=== PATIENT | male | born 1965 ===

== ENCOUNTER 2016-07-15 17:16 | Emergency (ER) | payer MEDICARE, MEDICAID ==
[2016-07-15] MEDS ORDERED: NS 0.9% 1000 ML* 1,000 ML IV ONE (18:51)
[2016-07-15] MEDS ORDERED: Ondansetron INJ* 2 MG/ML VIAL IV ONE (18:51)
[2016-07-15 19:20] LABS: Hematocrit 40 % (42-52); Mean Corpuscular HGB Conc 33 g/dl (31-36); Mean Corpuscular Hemoglobin 28 pg (27-31); Mean Corpuscular Volume 86 fL (80-94); Mean Platelet Volume 10 um3 (7.4-10.4); Red Blood Count 4.65 10^6/ul (4.0-5.4); Red Cell Distribution Width 14 % (10.5-15); White Blood Count 5.4 10^3/ul (3.5-10.8)
[2016-07-15 19:31] LABS: Albumin 3.7 g/dL (3.2-5.2); BUN/Creatinine Ratio 13.8 (8-20); Calcium 9.2 mg/dL (8.6-10.3); EGFR African American 131.1 (>60); EGFR Non-African American 101.9 (>60); Globulin 2.7 g/dL (2-4); Potassium 4.1 mmol/L (3.5-5.0); Total Bilirubin 0.3 mg/dL (0.2-1.0); Total Protein 6.4 g/dL (6.4-8.9)
[2016-07-15] MEDS ORDERED: cloNIDine TAB* 0.1 MG PO ONE (19:40)
--- NOTE | 2016-07-15 19:42 | ED ---
Abdominal Pain/Male - HPI Summary HPI Summary: 50M presents with abdominal pain, n/v/d s/p stopping methadone 3 days ago. He states that he was seen at [facility] and they told hime he could be placed in drug rehab next week. He said though that he felt like he could pass out so they sent him here. He states all his symptoms are due to him not having a dose of methadone in the past 3 days. He uses percocet, methadone, and sometimes heronin. He also is DM and schizophrenia. He was being treated in [facility] where he lives when his son started to use drugs so he decided to visit him here. He states his son has put him under a lot of stress. He denies being currently suicidal but states that he would like to take out a life insurance policy for his son just in case he dies from methadone withdrawal. He does not want him to kill himself. - History of Current Complaint Chief Complaint: EDNauseaVomitDiarrh Stated Complaint: WITHDRAWAL Time Seen by Provider: 07/15/16 18:51 Pain Intensity: 10 - Allergies/Home Medications Allergies/Adverse Reactions: Allergies Allergy/AdvReac Type Severity Reaction Status Date / Time Ondansetron [From Zofran] Allergy Hives Verified 07/15/16 19:16 PMH/Surg Hx/FS Hx/Imm Hx Cardiovascular History: Reports: Hx Coronary Artery Disease Musculoskeletal History: Reports: Hx Arthritis Psychiatric History: Reports: Hx Schizophrenia Infectious Disease History: Yes Infectious Disease History: Denies: Traveled Outside the [place] in Last 30 Days - Family History Known Family History: Negative: Cardiac Disease - Social History Alcohol Use: None Substance Use Type: Reports: Prescribed Substance Use Comment - Amount & Last Used: methadone Smoking Status (MU): Light Every Day Tobacco Smoker Review of Systems Negative: Fever Negative: Chest Pain Negative: Shortness Of Breath Positive: Vomiting, Diarrhea, Nausea. Negative: Abdominal Pain All Other Systems Reviewed And Are Negative: Yes Physical Exam Triage Information Reviewed: Yes Vital Signs On Initial Exam: Initial Vitals Temp Pulse Resp BP Pulse Ox 98.2 F 61 16 102/66 95 07/15/16 17:26 07/15/16 17:26 07/15/16 17:26 07/15/16 17:26 07/15/16 17:26 Vital Signs Reviewed: Yes Appearance: Positive: Well-Appearing Skin: Positive: Warm, Dry Head/Face: Positive: Normal Head/Face Inspection Eyes: Positive: Normal, Conjunctiva Clear ENT: Positive: Normal ENT inspection, Pharynx normal, TMs normal Respiratory/Lung Sounds: Positive: Clear to Auscultation, Breath Sounds Present Cardiovascular: Positive: Normal, RRR Abdomen Description: Positive: Nontender, Soft Bowel Sounds: Positive: Present - [place] Coma Scale Coma Scale Total: 15 Diagnostics - Vital Signs Vital Signs Temp Pulse Resp BP Pulse Ox 07/15/16 19:00 54 97 07/15/16 18:00 76 96 07/15/16 17:34 60 17 96 07/15/16 17:26 98.2 F 61 16 102/66 95 - Laboratory Lab Results: Lab Results 07/15/16 07/15/16 Range/Units 17:40 17:40 WBC 5.4 (3.5-10.8) 10^3/ul RBC 4.65 (4.0-5.4) 10^6/ul Hgb 13.0 L (14.0-18.0) g/dl Hct 40 L (42-52) % MCV 86 (80-94) fL MCH 28 (27-31) pg MCHC 33 (31-36) g/dl RDW 14 (10.5-15) % Plt Count 128 L (150-450) 10^3/ul MPV 10 (7.4-10.4) um3 Neut % (Auto) 60.0 (38-83) % Lymph % (Auto) 26.7 (25-47) % [place] % (Auto) 11.6 H (1-9) % Eos % (Auto) 1.1 (0-6) % Baso % (Auto) 0.6 (0-2) % Absolute Neuts (auto) 3.2 (1.5-7.7) 10^3/ul Absolute Lymphs (auto) 1.4 (1.0-4.8) 10^3/ul Absolute Monos (auto) 0.6 (0-0.8) 10^3/ul Absolute Eos (auto) 0.1 (0-0.6) 10^3/ul Absolute Basos (auto) 0 (0-0.2) 10^3/ul Absolute Nucleated RBC 0.01 10^3/ul Nucleated RBC % 0.1 Sodium 140 (133-145) mmol/L Potassium 4.1 (3.5-5.0) mmol/L Chloride 110 (101-111) mmol/L Carbon Dioxide 25 (22-32) mmol/L Anion Gap 5 (2-11) mmol/L BUN 11 (6-24) mg/dL Creatinine 0.80 (0.67-1.17) mg/dL Est GFR ( Amer) 131.1 (>60) Est GFR (Non-Af Amer) 101.9 (>60) BUN/Creatinine Ratio 13.8 (8-20) Glucose 127 H (70-100) mg/dL Calcium 9.2 (8.6-10.3) mg/dL Total Bilirubin 0.30 (0.2-1.0) mg/dL AST 17 (13-39) U/L ALT 12 (7-52) U/L Alkaline Phosphatase 64 (34-104) U/L C-React Prot High Sens 13.73 mg/L Total Protein 6.4 (6.4-8.9) g/dL Albumin 3.7 (3.2-5.2) g/dL Globulin 2.7 (2-4) g/dL Albumin/Globulin Ratio 1.4 (1-3) Lipase 23 (11.0-82.0) U/L Result Diagrams: 07/15/16 17:40 07/15/16 17:40 Lab Statement: Any lab studies that have been ordered have been reviewed, and results considered in the medical decision making process. Abdominal Pain Fem Course/Dx - Course Course Of Treatment: 50M presents with symptoms of methadone withdrawal. request methadone but told unable to provide that medication. patient became emotional and tearful on exam and asked if he would like to talk to mental health which he agreed. he told mental health that he used heronin today but told me he hasnt used anything in 3 days. vitals stable. labs good. denies SI but states that is going to from methadone withdrawal and that will accept it. spoke with mental health and told not sucidial, told me that wants to live for son. explained that can not from methadone withdrawal but can make feel terrible. gave dose of clonidine. patient eloped and was able to do so as is not sucidial and does not appear to be a danger to self. - Diagnoses Differential Diagnosis/HQI/PQRI: Gall Bladder Disease, Urinary Tract Infection, Other - gastroenteritis, withdrawal opioid Provider Diagnoses: Opioid dependence, Opioid withdrawal Discharge - Discharge Plan Condition: Stable Disposition: AGAINST MEDICAL ADVICE Discharge Disposition Comment: eloped Referrals: Non Staff,Doctor [Primary Care Provider] -
[2016-07-15 20:48] VITALS: BP 93/51
== END 2016-07-15 21:40 | disposition left against medical advice (07) ==
LOC: ED 17:16
DX: F11.23 Opioid dependence with withdrawal (principal); R10.9 Unspecified abdominal pain; R11.2 Nausea with vomiting, unspecified; R19.7 Diarrhea, unspecified; F17.210 Nicotine dependence, cigarettes, uncomplicated
CPT/HCPCS: 36415; 80053; 83690; 85025; 86141; 99285; J2405

== ENCOUNTER 2016-07-21 10:36 | Emergency (ER) | payer MEDICARE, MEDICAID ==
[2016-07-21 10:53] VITALS: BP 103/63
[2016-07-21] MEDS ORDERED: Aspirin Low Dose CHEW TAB* 81 MG PO ONE (11:00)
[2016-07-21] MEDS ORDERED: Acetaminophen TAB* 325 MG PO ONE (11:06)
[2016-07-21 11:47] LABS: Hematocrit 42 % (42-52); Hemoglobin 13.9 g/dl (14.0-18.0); Mean Corpuscular HGB Conc 33 g/dl (31-36); Mean Corpuscular Hemoglobin 28 pg (27-31); Mean Corpuscular Volume 85 fL (80-94); Mean Platelet Volume 9 um3 (7.4-10.4); Red Blood Count 4.97 10^6/ul (4.0-5.4); Red Cell Distribution Width 15 % (10.5-15); White Blood Count 7.4 10^3/ul (3.5-10.8)
[2016-07-21 12:07] LABS: BUN/Creatinine Ratio 8.8 (8-20); Calcium 9.4 mg/dL (8.6-10.3); EGFR African American 131.1 (>60); EGFR Non-African American 101.9 (>60); Globulin 2.9 g/dL (2-4); Potassium 3.5 mmol/L (3.5-5.0); Total Bilirubin 0.4 mg/dL (0.2-1.0); Total Protein 6.9 g/dL (6.4-8.9)
--- NOTE | 2016-07-21 12:16 | RAD ---
Indication: Severe LEFT side chest pain. Fall. Substance withdrawal. Tobacco use. Comparison: None. Technique: Upright AP 1110 hours Report: Negative for alveolar infiltrate, focal pulmonary lesion, pleural effusion, pneumothorax. The heart, pulmonary vasculature, and mediastinal contours are unremarkable. No fracture evident. IMPRESSION: No evidence for acute intrathoracic disease. No traumatic injury evident.
--- NOTE | 2016-07-21 18:23 | ED ---
Moncho Bella Matthew, scribed for Thor Jason MD on 07/21/16 at 1110 . HPI Chest Pain - HPI Summary HPI Summary: A 50 y/o male presents to the ED with chest pain since this morning. The patient states that he's going thorough withdrawal and last used heroin 2 days ago. Associated symptoms include SOB, nausea, and vomiting. The patient was here on July 15 for a similar complaint and left AMA. The patient takes aspirin , metformin, and testosterone. He is no longer taking methadone. PMHx of diabetes. - History of Current Complaint Chief Complaint: EDChestPainROMI Time Seen by Provider: 07/21/16 10:48 Hx Obtained From: Patient Onset/Duration: Started Hours Ago, Atraumatic, Still Present Timing: Constant Initial Severity: Moderate Current Severity: Moderate Pain Intensity: 10 Pain Scale Used: 0-10 Numeric Associated Signs and Symptoms: Positive: Chest Pain, Shortness of Breath, Nausea , Vomiting - Allergy/Home Medications Allergies/Adverse Reactions: Allergies Allergy/AdvReac Type Severity Reaction Status Date / Time Ondansetron [From Zofran] Allergy Hives Verified 07/15/16 19:16 PMH/Surg Hx/FS Hx/Imm Hx Cardiovascular History: Reports: Hx Coronary Artery Disease Musculoskeletal History: Reports: Hx Arthritis Psychiatric History: Reports: Hx Schizophrenia Denies: Hx Eating Disorder, Hx of Violent Episodes Against Others - Family History Known Family History: Negative: Cardiac Disease - Social History Alcohol Use: None Substance Use Type: Reports: Heroin - last used 2 days ago, Prescribed Substance Use Comment - Amount & Last Used: methadone Smoking Status (MU): Light Every Day Tobacco Smoker Review of Systems Constitutional: Negative Eyes: Negative ENT: Negative Positive: Chest Pain Positive: Shortness Of Breath Positive: Vomiting, Nausea Genitourinary: Negative Musculoskeletal: Negative Skin: Negative Neurological: Negative Psychological: Normal All Other Systems Reviewed And Are Negative: Yes Physical Exam - Summary Physical Exam Summary: VITAL SIGNS: Reviewed. GENERAL: Patient is a well developed and nourished male who is lying comfortable in the stretcher. Patient is not in any acute respiratory distress. HEAD AND FACE: No signs of trauma. No ecchymosis, hematomas or skull depressions. No sinus tenderness. EYES: PERRLA, EOMI x 2, No injected conjunctiva, no nystagmus. EARS: Hearing grossly intact. Ear canals and tympanic membranes are within normal limits. MOUTH: Oropharynx within normal limits. NECK: Supple, trachea is midline, no adenopathy, no JVD, no carotid bruit, no c- spine tenderness, neck with full ROM. CHEST: Symmetric, no tenderness at palpation LUNGS: Clear to auscultation bilaterally. No wheezing or crackles. CVS: Regular rate and rhythm, S1 and S2 present, no murmurs or gallops appreciated. ABDOMEN: Soft, non-tender. No signs of distention. No rebound no guarding, and no masses palpated. Bowel sounds are normal. EXTREMITIES: FROM in all major joints, no edema, no cyanosis or clubbing. NEURO: Alert and oriented x 3. No acute neurological deficits. Speech is normal and follows commands. SKIN: Dry and warm Triage Information Reviewed: Yes Vital Signs On Initial Exam: Initial Vitals Temp Pulse Resp BP Pulse Ox 99.0 F 63 18 103/63 100 07/21/16 10:41 07/21/16 10:41 07/21/16 10:41 07/21/16 10:41 07/21/16 10:41 Vital Signs Reviewed: Yes Diagnostics - Vital Signs Vital Signs Temp Pulse Resp BP Pulse Ox 07/21/16 10:41 99.0 F 63 18 103/63 100 - Laboratory Result Diagrams: 07/21/16 11:40 07/21/16 11:40 Lab Statement: Any lab studies that have been ordered have been reviewed, and results considered in the medical decision making process. - Radiology CXR Xray Interpretation: No Acute Changes - IMPRESSION: No evidence for acute intrathoracic disease. No traumatic injury evident. Radiology Interpretation Completed By: Radiologist - EKG 10:39 Cardiac Rate: NL - 66 bpm EKG Rhythm: Sinus Rhythm EKG Interpretation: No ST elevations Chest Pain Course/Dx - Course Assessment/Plan: A 50 y/o male presents to the ED with chest pain since this morning. The patient states that he's going thorough withdrawal and last used heroin 2 days ago. Associated symptoms include SOB, nausea, and vomiting. The patient was here on July 15 for a similar complaint and left AMA. The patient takes aspirin, metformin, and testosterone. He is no longer taking methadone. PMHx of diabetes. Blood worn WNL Hgb of 13.9, troponin is 0.00, CXR shows no acute pathology. EKG shows NSR at 66 bpm without TS elevation. Since the patient has been asymptomatic I believe its chest wall pain. I offered Tylenol for the pain however he refused and requested Dilaudid. Since the patient is a heroin addict trying to go to rehab I declined the request for Dilaudid. I offered alternatives, but he declined stating the pain was only 1/10. I dont know believe he has ACS, because has increased chest pain with palpitation and movement of LUE. I did not suspect PE since the patient is not tachycardia or hypoxic. The patient will be discharged home with follow-up from his PCP. I discussed all the findings and test results with the patient. Patient was instructed to return to the emergency room immediately if any of the symptoms return or worsens. Plan of care was discussed with the patient and understands and agrees. All questions were answered at patient satisfaction. There were no further complaints or concerns. Lung exam before discharge: CTA B/L. Good air exchange. No wheezing or crackles heard. CVS: S1 and S2 present. No murmurs appreciated. Patient is alert and oriented x 3. Patient is hemodynamically stable. Patient will be discharged home with follow up PCP in the next 2-3 days - Chest Pain Differential Diagnosis/HQI/PQRI: Acute CO, ACS, Angina, CHF, Chest Wall, GI Disease, Lower Respiratory Infection - Diagnoses Provider Diagnoses: Chest pain Discharge - Discharge Plan Condition: Stable Disposition: HOME Patient Education Materials: Chest Pain (ED) Referrals: [facility] [place] PHYSICIAN REFERRAL [Outside] Non Staff,Doctor [Primary Care Provider] - Additional Instructions: Please follow-up with your primary care physician in 2 days. The documentation as recorded by the Moncho felton Matthew accurately reflects the service I personally performed and the decisions made by me, Thor Jason MD.
== END 2016-07-21 13:01 | disposition home or self-care (01) ==
LOC: ED 10:36
DX: R07.9 Chest pain, unspecified (principal); F17.200 Nicotine dependence, unspecified, uncomplicated; E11.9 Type 2 diabetes mellitus without complications; I25.10 Atherosclerotic heart disease of native coronary artery without angina pectoris; F20.9 Schizophrenia, unspecified
CPT/HCPCS: 36415; 71010; 80053; 82550; 82553; 83605; 83880; 84484; 85025; 93005; 99282; A9270-GY